=== PATIENT | male | born 1985 | race Hispanic/Latino ===

== ENCOUNTER 2017-12-04 09:18 | Emergency (ER) | payer OTHER ==
[~2017-12-04] VITALS: Ht 167.6 cm; Wt 104.1 kg
[2017-12-04] MEDS ORDERED: KETOROLAC TROMETHAMINE 30 MG/ML VIAL IV STA (10:03)
[2017-12-04] MEDS ORDERED: ONDANSETRON HCL INJ 2 MG/ML VIAL IV STA (10:03)
[2017-12-04] MEDS ORDERED: SODIUM CHLORIDE 0.9% 1000ML 1,000 ML IV SCH (10:15)
[2017-12-04] MEDS ORDERED: TAMSULOSIN HCL0.4 MG (11:03)
[2017-12-04] MEDS ORDERED: TYLENOL WITH C1 EACH PO (11:03)
[2017-12-04 11:50] VITALS: BP 134/68
== END 2017-12-04 11:40 | disposition home or self-care (01) ==
LOC: FSED 09:18
DX: R10.12 Left upper quadrant pain (principal); R11.0 Nausea; N23 Unspecified renal colic; F17.210 Nicotine dependence, cigarettes, uncomplicated
CPT/HCPCS: 74176; 80053; 85025; 99284; J1885; J2405; J7030

== ENCOUNTER 2018-07-28 08:51 | Emergency (ER) | payer OTHER ==
[~2018-07-28] VITALS: Ht 167.6 cm; Wt 103.9 kg
[~2018-07-28 08:51] MED LIST: TAMSULOSIN HCL0.4 MG; TYLENOL WITH C1 EACH PO
[2018-07-28] MEDS ORDERED: KETOROLAC TROMETHAMINE 30 MG/ML VIAL IV STA (09:05)
[2018-07-28] MEDS ORDERED: MORPHINE SULFATE INJ 4 MG/ML INJ IV PRN (09:15)
[2018-07-28] MEDS ORDERED: SODIUM CHLORIDE 0.9% 1000ML 1,000 ML IV SCH (09:15)
[2018-07-28] MEDS ORDERED: MORPHINE SULFATE INJ 4 MG/ML INJ IV ONE (09:45)
--- NOTE | 2018-07-28 09:49 | Diagnostic Imaging Report ---
PROCEDURE:CT ABD/PEL WO CONTRAST-HOPD COMPARISON:None. INDICATIONS:Left flank pain. Technique: Axial CT images of the abdomen and pelvis were obtained from the lung bases through the lesser trochanters without oral or intravenous contrast per renal stone protocol. Coronal and sagittal reformatted images were available for review. FINDINGS: SENSITIVITY AND SPECIFICITY OF THE EXAMINATION ARE LIMITED IN THE ABSENCE OF INTRAVENOUS CONTRAST. Lung bases: Groundglass opacities in the dependent lower lobes compatible with subsegmental atelectasis. Liver: Hepatic parenchyma is diffusely hypoattenuating compatible with steatosis. No focal hepatic lesion or intrahepatic biliary ductal dilatation. The gallbladder is unremarkable. Spleen: No splenomegaly. Pancreas: No focal mass or ductal dilatation. Adrenals: No adrenal nodules. Kidneys: No gross mass lesion, hydronephrosis, or calculus. Pelvic organs/bladder: The urinary bladder is incompletely distended but otherwise unremarkable. No ureteral calculi. The prostate and seminal vesicles appear normal. GI tract: The large bowel shows no evidence of distention or wall thickening. The appendix is normal. There is no small bowel dilatation to suggest obstruction. Lymph nodes: No retroperitoneal, mesenteric, or pelvic sidewall lymphadenopathy. Vasculature: Limited evaluation without intravenous contrast. The abdominal aorta is non-aneurysmal. Peritoneum/retroperitoneum: No ascites. No pneumoperitoneum. Bones: No osseous destructive lesions. Soft tissues: No focal soft tissue abnormalities. CONCLUSION: No acute intra-abdominal or pelvic CT abnormalities. No CT evidence of urolithiasis. Hepatic steatosis. Dictated by: Kirby Zarate M.D. on 07/28/2018 at 9:58 Electronically approved by: Kirby Zarate M.D. on 07/28/2018 at 9:58
[2018-07-28 10:31] VITALS: BP 158/97
== END 2018-07-28 10:33 | disposition home or self-care (01) ==
LOC: FSED 08:51
DX: R10.12 Left upper quadrant pain (principal); K29.00 Acute gastritis without bleeding
CPT/HCPCS: 74176; 80053; 85025; 93005; 96374; 96375; 96376; 99284; J1885; J2270

== ENCOUNTER 2020-08-26 10:44 | Emergency (ER) | payer OTHER ==
[~2020-08-26] VITALS: Ht 167.6 cm; Wt 111.1 kg
[2020-08-26] MEDS ORDERED: SODIUM CHLORIDE 0.9% 1000ML 1,000 ML IV SCH (11:45)
[2020-08-26] MEDS ORDERED: SODIUM CHLORIDE 0.9% 1000ML 1,000 ML ONE (12:35)
[2020-08-26] MEDS ORDERED: ATIVAN0.5 MG PO (13:27)
[2020-08-26 14:00] VITALS: BP 141/71
== END 2020-08-26 13:47 | disposition home or self-care (01) ==
LOC: FSED 10:52
DX: R73.9 Hyperglycemia, unspecified (principal); R74.8 Abnormal levels of other serum enzymes; F41.9 Anxiety disorder, unspecified; E66.9 Obesity, unspecified; Z87.442 Personal history of urinary calculi; F17.210 Nicotine dependence, cigarettes, uncomplicated
CPT/HCPCS: 71046; 80053; 81003; 82553; 84484; 85025; 93005; 99284; J7030

== ENCOUNTER 2022-11-29 22:02 | Emergency (ER) | payer OTHER ==
[~2022-11-29] VITALS: Ht 167.6 cm; Wt 111.1 kg
[~2022-11-29 22:02] MED LIST changes: +ATIVAN0.5 MG PO
[2022-11-29] MEDS ORDERED: FAMOTIDINE 20 MG/2 ML VIAL IV STA (22:20)
[2022-11-29] MEDS ORDERED: KETOROLAC TROMETHAMINE 30 MG/ML VIAL IV STA (22:24)
[2022-11-29] MEDS ORDERED: SODIUM CHLORIDE 0.9% 1000ML 1,000 ML IV SCH (22:30)
[2022-11-29] MEDS ORDERED: KETOROLAC TROMETHAMINE 30 MG/ML VIAL ONE (22:51)
[2022-11-29] MEDS ORDERED: SODIUM CHLORIDE 0.9% 1000ML 1,000 ML ONE (22:51)
[2022-11-29] MEDS ORDERED: FAMOTIDINE 20 MG/2 ML VIAL IV ONE (22:52)
[2022-11-29] MEDS ORDERED: FAMOTIDINE20 MG PO (23:18)
[2022-11-29 23:40] VITALS: BP 154/92
== END 2022-11-29 23:40 | disposition home or self-care (01) ==
LOC: FSED 22:06
DX: R07.89 Other chest pain (principal); K29.70 Gastritis, unspecified, without bleeding; R10.13 Epigastric pain; R03.0 Elevated blood-pressure reading, without diagnosis of hypertension; F41.9 Anxiety disorder, unspecified; R74.8 Abnormal levels of other serum enzymes; E66.9 Obesity, unspecified; F17.210 Nicotine dependence, cigarettes, uncomplicated
CPT/HCPCS: 71046; 80048; 80076; 80307; 81003; 82553; 84484; 85025; 93005; 96374; 96375; 99284; J1885; J7030

== ENCOUNTER 2024-06-08 14:36 | Emergency (ER) | payer OTHER ==
[~2024-06-08] VITALS: Ht 152.4 cm; Wt 103.9 kg
[~2024-06-08 14:36] MED LIST changes: +FAMOTIDINE20 MG PO
[2024-06-08] MEDS ORDERED: OZEMPIC1 MG/0.71 (14:55)
[2024-06-08] MEDS: HYDROCODONE/APAP 5MG-325MG TAB PO ONE (15:36)
[2024-06-08] MEDS ORDERED: ANALPRAM HC 2.530 GM PR (15:37)
[2024-06-08 15:50] VITALS: PULSE 76; RESP 16; TEMP 98.4; O2SAT 97
[2024-06-08] MEDS ORDERED: HYDROCODON-ACE1 EA12 PO (16:00)
== END 2024-06-08 16:13 | disposition home or self-care (01) ==
LOC: FSED 14:54
DX: K62.89 Other specified diseases of anus and rectum (principal); K60.2 Anal fissure, unspecified; E66.9 Obesity, unspecified; F17.210 Nicotine dependence, cigarettes, uncomplicated
CPT/HCPCS: 99283